=== PATIENT | male | born 1945 | race Caucasian/White ===

== ENCOUNTER 2017-07-30 14:17 | Observation (INO) | payer MEDICARE, BC ==
[~2017-07-30] VITALS: Ht 188 cm; Wt 116.6 kg
[~2017-07-30 14:17] MED LIST: ANAPROX DS550 MG PO; ASPIRIN; ASPIRIN81 M2 PO; BENICAR20 MG PO; BENTYL20 MG PO; CIPRO500 MG PO; CIPROFLOXACIN500 M1 PO; DARVOCET-N 1001 EACH PO; FISH OIL 1,001000 M1 PO; FLAX SEED OIL1000 MG PO; FOLIC ACID 40400 MC1 PO; IBUPROFEN 400400 M2 PO; IRON159 MG PO; KEFLEX500 MG PO; LOPRESSOR 12.12.5 MG PO; LOPRESSOR25 PO; MECLIZINE HCL25 MG PO; METOPROLOL PO; NEXIUM40 MG PO; NORFLEX100 MG PO; NORVASC2.5 MG PO; NORVASC5 MG PO; PAXIL20 MG PO; PLAVIX 75 MG TA75 MG PO; TOPROL XL25 MG PO; TRAMADOL 50 MG50 MG PO; VITAMIN B-12250 MCG PO; ZOCOR 10 MG TAB10 MG PO; ZOCOR 20 MG TAB20 M1 PO
[2017-07-30 14:25] VITALS: BP 138/84
[2017-07-30 14:35] LABS: ABSOLUTE BASOPHILS 0.1 thou/uL (0.0-0.2); ABSOLUTE EOSINOPHILS 0.1 thou/uL (0.0-0.7); ABSOLUTE LYMPHOCYTES 1.8 thou/uL (0.8-5.3); ABSOLUTE MONOCYTES 0.6 thou/uL (0.0-1.2); BASOPHILS 1.1 %; EOSINOPHILS 1.7 %; HEMOGLOBIN 15.6 gm/dL (14.0-18.0); LYMPHOCYTES 23.4 %; MCH 30.4 pg (26.0-34.0); MCHC 33.2 g/dL (28.0-37.0); MCV 91.3 fL (80.0-100.0); MONOCYTES 7.6 %; MPV 9.5 fl. (7.2-11.1); NUCLEATED RBCS 0 /100WBC; PLATELET COUNT* 177 thou/uL (150-400); POLYS 66.2 %; RBC 5.14 mil/uL (4.50-6.00); RDW-CV 14.2 % (10.5-14.5); WBC 7.6 thou/uL (4.0-11.0)
[2017-07-30 14:43] LABS: ANION GAP 4 mmol/L (7-16); BUN 21 mg/dL (7-18); CALCIUM 8.8 mg/dL (8.5-10.1); CHLORIDE 104 mmol/L (98-107); CO2 31 mmol/L (21-32); CREATININE 1.4 mg/dL (0.6-1.3); GLUCOSE 136 mg/dL (70-99); POTASSIUM 4.3 mmol/L (3.5-5.1); SODIUM 139 mmol/L (136-145)
[2017-07-30 14:59] LABS: ALBUMIN 3.9 g/dL (3.4-5.0); ALKALINE PHOSPHATASE 94 U/L (46-116); LIPASE 205 U/L (73-393); MAGNESIUM 1.7 mg/dL (1.8-2.4); NT-PRO BRAIN NAT PEPTIDE 382 pg/mL (<300); SGOT 25 U/L (15-37); SGPT 20 U/L (30-65); TOTAL BILIRUBIN 0.5 mg/dL (<0.1-1.0); TOTAL PROTEIN 7.4 g/dL (6.4-8.2); TROPONIN-I LEVEL <0.06 ng/mL (<0.06)
[2017-07-30 18:30] VITALS: BP 147/63
[2017-07-30] MEDS ORDERED: LIPITOR 10 MG10 M1 PO (20:56)
[2017-07-31] VITALS: BP 123/43
[2017-07-31 04:00] VITALS: BP 136/67
[2017-07-31 08:15] VITALS: BP 125/60
[2017-07-31 12:00] VITALS: BP 143/78
[2017-07-31 12:29] VITALS: BP 125/60
--- NOTE | 2017-07-31 15:50 | EKG ---
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1945 Requested By: Moisés Nava Order Number: [id number] MD: Surinder Colunga Measurements Intervals [place] Rate: 127 P: [place]: QRS: -59 QRSD: 123 T: 91 QT: 346 QTc: 504 Interpretive Statements SUPRAVENTRICULAR TACHYCARDIA with aberrancy IVCD, consider atypical RBBB LVH with IVCD and secondary repol abnrmality Prolonged QT interval Compared to ECG 03/26/2016 04:27:55 SUPRAVENTRICULAR TACHYCARDIA now present Left ventricular hypertrophy now present Early repolarization now present Prolonged QT interval now present Sinus rhythm no longer present Electronically Signed On 07-31-2017 15:50:03 DIGITAL ACCOUNT COORDINATOR by Surinder Colunga [email or web address] <ELECTRONICALLY SIGNED> By: Surinder Colunga MD, [facility] 07/31/17 1550 1422 1422 Surinder Colunga MD, [facility] /EPI
--- NOTE | 2017-07-31 15:50 | EKG ---
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1945 Requested By: Jud Cortez Order Number: [id number] MD: Surinder Colunga Measurements Intervals [place] Rate: 70 P: 25 [place]: 172 QRS: -56 QRSD: 120 T: 29 QT: 437 QTc: 472 Interpretive Statements Sinus rhythm Left anterior fascicular block Left ventricular hypertrophy Compared to ECG 03/26/2016 04:27:55 Left anterior fascicular block now present Left ventricular hypertrophy now present Intraventricular conduction delay no longer present T-wave abnormality no longer present Sinus rhythm now present Electronically Signed On 07-31-2017 15:50:41 CLINICAL PHARMACIST by Surinder Colunga [email or web address] <ELECTRONICALLY SIGNED> By: Surinder Colunga MD, [facility] 07/31/17 1550 1435 1435 Surinder Colunga MD, FAC /EPI
--- NOTE | 2017-07-31 16:09 | 2DMMODE ---
[place] [address] 2 D/M-MODE ECHOCARDIOGRAM Name: EDNA PENG Room: [address] IN [facility]#: [id number] Admission: 07/30/17 Attend Phys: Lizzette Carpenter, Discharge: Date of : 41 Date of Service: 07/31/17 1608 Report #: [id number] THIS REPORT FOR: //name// APPROVED REPORT Study performed: 07/31/2017 13:59:27 EXAM: Comprehensive 2D, Doppler, and color-flow Echocardiogram Patient Location: In-Patient Room #: [facility] BSA: 2.40 HR: 58 bpm BP: 125/60 mmHg Other Information Study Quality: Good Indications Angina 2D Dimensions LVEF(%): 56.39 (>50%) IVSd: 14.33 (7-11mm) LVOT Diam: 21.03 (18-24mm) LVDd: 46.74 mm PWd: 13.32 (7-11mm) Ascending Ao: 35.44 (22-36mm) LVDs: 32.98 (25-40mm) Aortic Root: 31.67 mm Muir's LVEF: 56.39 % Volumes Left Atrial Volume (Systole) LA ESV Index: 21.50 mL/m2 Aortic Valve AoV Peak Hossein.: 1.01 m/s AO Peak Gr.: 4.12 mmHg LVOT Max P.57 mmHg AO Mean Gr.: 2.39 mmHg LVOT Mean P.21 mmHg LVOT Max V: 0.80 m/s AO V2 VTI: 23.22 cm LVOT Mean V: 0.50 m/s EBEN (VTI): 2.86 cm2 LVOT V1 VTI: 19.09 cm Mitral Valve E/A Ratio: 1.05 MV Decel. Time: 227.91 [place] [address] 2 D/M-MODE ECHOCARDIOGRAM Name: EDNA PENG Room: [address] IN ..#: [id number] Admission: 07/30/17 Attend Phys: Lizzette Carpenter, Discharge: Date of : 41 Date of Service: 07/31/17 1608 Report #: [id number] MV E Max Hossein.: 0.74 m/s MV PHT: 66.09 ms MVA (PHT): 3.33 cm2 TDI E/Lateral E': 7.40 E/Medial E': 9.25 Medial E' Hossein.: 0.08 m/s Lateral E' Hossein.: 0.10 m/s Pulmonary Valve PV Peak Hossein.: 0.90 m/s PV Peak Gr.: 3.23 mmHg Tricuspid Valve TR Peak Gr.: 18.37 mmHg RVSP: 23.37 mmHg Left Ventricle The left ventricle is normal size. There is normal LV segmental wall motion. Mild concentric left ventricular hypertrophy. Left ventricular systolic function is normal. The left ventricular ejection fraction is within the normal range. LVEF is 55-60%. The left ventricular diastolic function is normal. Right Ventricle The right ventricle is normal size. The right ventricular systolic function is normal. Atria The left atrium size is normal. The right atrium size is normal. Aortic Valve Mild aortic valve sclerosis. No aortic regurgitation is present. There is no aortic valvular stenosis. Mitral Valve The mitral valve is normal in structure. Trace mitral regurgitation. No evidence of mitral valve stenosis. Tricuspid Valve The tricuspid valve is normal in structure. Mild tricuspid regurgitation. The RVSP is __23.4 mmHg. Pulmonic Valve The pulmonary valve is normal in structure. There is no [place]mon[place] [address] 2 D/M-MODE ECHOCARDIOGRAM Name: GINETTEEDNA Roland Room: [address] IN [facility]#: [id number] Admission: 07/30/17 Attend Phys: Lizzette Carpenter, Discharge: Date of : 41 Date of Service: 07/31/17 1608 Report #: [id number] Great Vessels The aortic root is normal in size. IVC is normal in size and collapses with >50% inspiration Pericardium There is no pericardial effusion. <Conclusion> The left ventricle is normal size. Mild concentric left ventricular hypertrophy. Left ventricular systolic function is normal. The left ventricular ejection fraction is within the normal range. LVEF is 55-60%. The left ventricular diastolic function is normal. The right ventricle is normal size. The left atrium size is normal. Mild aortic valve sclerosis. No aortic regurgitation is present. There is no aortic valvular stenosis. The mitral valve is normal in structure. Trace mitral regurgitation. The tricuspid valve is normal in structure. Mild tricuspid regurgitation. The RVSP is __23.4 mmHg. IVC is normal in size and collapses with >50% inspiration There is no pericardial effusion. There is normal LV segmental wall motion. <ELECTRONICALLY SIGNED> By: Surinder Colunga MD, FACC 07/31/17 1608 1608 1608 Surinder Colunga MD, FACC /INF
[2017-07-31 16:37] VITALS: BP 141/64
[2018-02-21] MEDS ORDERED: CARDIZEM CD 18180 M3 PO (07:17)
[2018-02-21] MEDS ORDERED: DIGOXIN125 MCG PO (07:17)
[2018-02-21] MEDS ORDERED: VITAMIN D3400 UNIT PO (07:18)
[2018-02-21] MEDS ORDERED: OMEGA-31000 M1 PO (07:20)
== END 2017-07-31 16:40 | disposition home or self-care (01) ==
LOC: M.ERS 14:17 → M.2W 15:09 → M.TBA-ER 15:09 → M.2W 15:09
PROVIDERS: Emergency Medicine Emergency Medical Services; ADMIT Internal Medicine
DX: I25.119 Atherosclerotic heart disease of native coronary artery with unspecified angina pectoris (principal); I47.1 Supraventricular tachycardia; E78.5 Hyperlipidemia, unspecified; I10 Essential (primary) hypertension; Z87.891 Personal history of nicotine dependence; Z98.890 Other specified postprocedural states

== ENCOUNTER → 2018-07-17 | Outpatient (CLI) | payer MEDICARE, BC ==
[~2018-07-17] MED LIST changes: +CARDIZEM CD 18180 M3 PO; +DIGOXIN125 MCG PO; +LIPITOR 10 MG10 M1 PO; +OMEGA-31000 M1 PO; +VITAMIN D3400 UNIT PO
--- NOTE | 2018-07-17 14:40 | 2DMMODE ---
[place] [address] 2 D/M-MODE ECHOCARDIOGRAM Name: EDNA PENG Room: [facility]#: [id number] Admission: 07/17/18 Attend Phys: Young Sinclair, Discharge: Date of : 41 Date of Service: 07/17/18 1439 Report #: [id number] THIS REPORT FOR: //name// APPROVED REPORT Study performed: 07/17/2018 13:09:24 EXAM: Comprehensive 2D, Doppler, and color-flow Echocardiogram Patient Location: Out-Patient Status: routine BSA: 2.40 HR: 60 bpm BP: 125/60 mmHg Other Information Study Quality: Good Indications Chest Pain 2D Dimensions IVSd: 13.70 (7-11mm) LVOT Diam: 20.07 (18-24mm) LVDd: 48.60 mm PWd: 13.88 (7-11mm) Ascending Ao: 34.44 (22-36mm) LVDs: 30.52 (25-40mm) Aortic Root: 37.11 mm Volumes Left Atrial Volume (Systole) LA ESV Index: 16.30 mL/m2 Aortic Valve AoV Peak Hossein.: 1.08 m/s AO Peak Gr.: 4.63 mmHg LVOT Max P.71 mmHg AO Mean Gr.: 2.36 mmHg LVOT Mean P.18 mmHg LVOT Max V: 0.82 m/s AO V2 VTI: 23.67 cm LVOT Mean V: 0.49 m/s EBEN (VTI): 2.62 cm2 LVOT V1 VTI: 19.58 cm Mitral Valve E/A Ratio: 0.96 MV Decel. Time: 308.72 ms MV E Max Hossein.: 0.63 m/s MV PHT: 89.53 ms MVA (PHT): 2.46 [place]2 [place] [address] 2 D/M-MODE ECHOCARDIOGRAM Name: EDNA PENG Room: [facility]#: [id number] Admission: 07/17/18 Attend Phys: Young Sinclair, Discharge: Date of : 41 Date of Service: 07/17/18 1439 Report #: [id number] TDI E/Lateral E': 5.73 E/Medial E': 9.00 Medial E' Hossein.: 0.07 m/s Lateral E' Hossein.: 0.11 m/s Pulmonary Valve PV Peak Hossein.: 0.90 m/s PV Peak Gr.: 3.21 mmHg Tricuspid Valve RAP Estimate: 5.00 mmHg TR Peak Gr.: 25.03 mmHg RVSP: 30.03 mmHg PA Pressure: 30.03 mmHg Left Ventricle The left ventricle is normal size. There is normal LV segmental wall motion. Mild concentric left ventricular hypertrophy. Left ventricular systolic function is normal. LVEF is 55-60%. Grade I - abnormal relaxation pattern. Right Ventricle The right ventricle is normal size. The right ventricular systolic function is normal. Atria The left atrium size is normal. The right atrium size is normal. Aortic Valve The aortic valve is normal in structure. No aortic regurgitation is present. There is no aortic valvular stenosis. Mitral Valve The mitral valve is normal in structure. There is no mitral valve regurgitation noted. No evidence of mitral valve stenosis. Tricuspid Valve The tricuspid valve is normal in structure. Mild tricuspid regurgitation. No pulmonary hypertension. Pulmonic Valve The pulmonary valve is normal in structure. There is no [place]mon[place] [address] 2 D/M-MODE ECHOCARDIOGRAM Name: GINETTEEDNASAPNA RUSSELL Room: [facility] SHERIF Bean#: [id number] Admission: 07/17/18 Attend Phys: Young Sinclair, Discharge: Date of : 41 Date of Service: 07/17/18 1439 Report #: [id number] Great Vessels The aortic root is normal in size. IVC is normal in size and collapses >50% with inspiration. Pericardium There is no pericardial effusion. <Conclusion> The left ventricle is normal size. Mild concentric left ventricular hypertrophy. Left ventricular systolic function is normal. LVEF is 55-60%. Grade I - abnormal relaxation pattern. Mild tricuspid regurgitation. No pulmonary hypertension. IVC is normal in size and collapses >50% with inspiration. <ELECTRONICALLY SIGNED> By: Young Sinclair MD, FACC 07/17/18 1439 38 143 Young Sinclair MD, FACC /INF
== END ==
LOC: M.CRD 07-11 08:18
DX: I65.23 Occlusion and stenosis of bilateral carotid arteries (principal); H53.8 Other visual disturbances

== ENCOUNTER → 2018-07-31 | Outpatient (CLI) | payer MEDICARE, BC ==
[2018-07-31 09:02] LABS: CHOLESTEROL 124 mg/dL (<200); HDL CHOLESTEROL 40 mg/dL (>40); LDL CHOLESTEROL 70 mg/dL (<100); TC:HDL 3.1 Ratio (Not establshd); TRIGLYCERIDE 74 mg/dL (<150); VLDL 15 mg/dL (<40)
[2018-07-31 09:03] LABS: SERUM ASSESSMENT Clear
== END ==
LOC: M.LAB 08:01
PROVIDERS: Internal Medicine Cardiovascular Disease
DX: E78.2 Mixed hyperlipidemia (principal)

== ENCOUNTER → 2019-03-08 | Outpatient (CLI) | payer MEDICARE, BC | LOC: M.RAD 15:02 | DX: J92.9 Pleural plaque without asbestos (principal); M47.814 Spondylosis without myelopathy or radiculopathy, thoracic region ==

== ENCOUNTER → 2019-03-26 | Outpatient (CLI) | payer MEDICARE, BC ==
[~2019-03-26] MED LIST changes: +TOPROL XL50 MG PO
[2019-03-26 14:54] LABS: ABSOLUTE BASOPHILS 0.1 thou/uL (0.0-0.2); ABSOLUTE EOSINOPHILS 0.1 thou/uL (0.0-0.7); ABSOLUTE LYMPHOCYTES 1.5 thou/uL (0.8-5.3); ABSOLUTE MONOCYTES 0.7 thou/uL (0.0-1.2); ABSOLUTE NEUTROPHILS 4.9 thou/uL (1.6-8.1); BASOPHILS 0.9 %; EOSINOPHILS 1.4 %; HEMATOCRIT 46.2 % (42.0-52.0); HEMOGLOBIN 15.3 gm/dL (14.0-18.0); LYMPHOCYTES 20.5 %; MCH 30.6 pg (26.0-34.0); MCHC 33.1 g/dL (28.0-37.0); MCV 92.2 fL (80.0-100.0); MONOCYTES 9.4 %; MPV 9.2 fl. (7.2-11.1); NUCLEATED RBCS 0 /100WBC; PLATELET COUNT* 177 thou/uL (150-400); POLYS 67.8 %; RBC 5.01 mil/uL (4.50-6.00); RDW-CV 13.9 % (10.5-14.5); WBC 7.3 thou/uL (4.0-11.0)
[2019-03-26 15:08] LABS: ALBUMIN 4.1 g/dL (3.4-5.0); CALCIUM 9.4 mg/dL (8.5-10.1); CREATININE 1.3 mg/dL (0.6-1.3); POTASSIUM 4.6 mmol/L (3.5-5.1); TOTAL BILIRUBIN 0.6 mg/dL (<0.1-1.0); TOTAL PROTEIN 7.2 g/dL (6.4-8.2)
== END ==
LOC: M.CT 14:35
PROVIDERS: Internal Medicine
DX: K57.30 Diverticulosis of large intestine without perforation or abscess without bleeding (principal); N40.0 Benign prostatic hyperplasia without lower urinary tract symptoms; M51.36 Other intervertebral disc degeneration, lumbar region

== ENCOUNTER → 2019-05-09 | Outpatient (CLI) | payer MEDICARE, BC ==
[~2019-05-09] MED LIST changes: +NORCO 5-325 TA1 EAC1 PO; +TRANSDERM-SCOP1 EACH TRANSDERM
--- NOTE | ~2019-05-09 | OP ---
[address] [address] OPERATIVE REPORT Name: EDNA PENG Room: [facility]#: [id number] Admission: 05/09/19 Attend Phys: Tono Mcknight DO Discharge: Date of : 41 Report #: [id number] THIS REPORT FOR: //name// CC: Jose Cruz Mcknight DATE OF SERVICE: 05/09/2019 PREOPERATIVE DIAGNOSIS: Symptomatic cholelithiasis. POSTOPERATIVE DIAGNOSIS: Symptomatic cholelithiasis. OPERATION: Laparoscopic cholecystectomy. SURGEON: Koffi Pollard MD ANESTHESIA: General. ESTIMATED BLOOD LOSS: Minimal. SPECIMEN: Gallbladder. DESCRIPTION OF PROCEDURE: After informed consent was obtained, the patient was brought to the operating room and placed supine. SCDs were placed and working, preoperative antibiotics were administered, general anesthesia was induced. The abdomen was prepped and draped in the usual sterile fashion. A 10 mm incision was made below the umbilicus. Fascia was incised and a trocar was placed. Pneumoperitoneum was established. Three right upper quadrant 5 mm ports were placed. Gallbladder was grasped at the fundus and retracted cephalad. Infundibulum was grasped and retracted laterally. I dissected out the cystic duct and cystic artery. Cystic duct and artery were clipped and ligated after the cystic plate was fully identified. Cystic duct and artery were clipped and ligated leaving 2 clips on the remaining duct and one on the remaining artery. Gallbladder was then taken off the liver bed with electrocautery. It was placed into an Endopouch and removed. The fascia was then closed with a [id number] 0 Vicryl. Skin was closed with 4-0 Monocryl. Incisions were sealed with Dermabond. COMPLICATIONS: None. DISPOSITION: The patient was taken to recovery in satisfactory condition. By: 1201 1214Koffi Pollard MD /nt
== END ==
LOC: M.MRI 06:58
DX: S83.241A Other tear of medial meniscus, current injury, right knee, initial encounter (principal); S83.281A Other tear of lateral meniscus, current injury, right knee, initial encounter; M25.461 Effusion, right knee; X58.XXXA Exposure to other specified factors, initial encounter; Y93.89 Activity, other specified; Y92.89 Other specified places as the place of occurrence of the external cause; Y99.8 Other external cause status

== ENCOUNTER → 2019-05-09 | Day surgery (SDC) | payer MEDICARE, BC ==
--- NOTE | 2019-05-09 10:34 | EKG ---
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: : 1945 Requested By: Koffi Pollard Order Number: [id number] Leslee MD: Surinder Colunga Measurements Intervals [place] Rate: 56 P: 8 [place]: 166 QRS: -58 QRSD: 120 T: -3 QT: 450 QTc: 435 Interpretive Statements Sinus rhythm Probable left atrial enlargement Left anterior fascicular block Compared to ECG 07/30/2017 14:35:52 Left ventricular hypertrophy no longer present Electronically Signed On 05-09-2019 10:34:19 SUPERVISOR INDUSTRIAL GARMENT by Surinder Colunga [email or web address] <ELECTRONICALLY SIGNED> By: Surinder Colunga MD, [facility] 05/09/19 1034 1003 Surinder Colunga MD, FACC /EPI
[2019-05-09 10:45] LABS: HEMOGLOBIN 15.6 gm/dL (14.0-18.0); MCH 30.6 pg (26.0-34.0); MCHC 33.8 g/dL (28.0-37.0); MCV 90.6 fL (80.0-100.0); MPV 9.5 fl. (7.2-11.1); RBC 5.08 mil/uL (4.50-6.00); RDW-CV 14.3 % (10.5-14.5); WBC 5.5 thou/uL (4.0-11.0)
[2019-05-09 10:55] LABS: CALCIUM 9.1 mg/dL (8.5-10.1); CREATININE 1.2 mg/dL (0.6-1.3)
[2019-05-09 10:59] LABS: ALBUMIN 3.7 g/dL (3.4-5.0); TOTAL BILIRUBIN 0.5 mg/dL (<0.1-1.0)
--- NOTE | 2019-05-13 14:06 | PATH ---
[place] [address] PATHOLOGY RPT PROCEDURE Name: EDNA MORIN Room: [facility].R.#: [id number] Admission: 05/09/19 Date of : 41 Discharge: Report #: [id number] Path Case #: [id number] LCA Accession Number: [id number] . 01 Material submitted: . gallbladder - GALLBLADDER AND CONTENTS . 01 Clinical history: . Calculus of gallbladder . 02 Diagnosis: Gallbladder and contents: - Chronic cholecystitis. See comment. (CALDERON:mandy; 05/13/2019) S 05/13/2019 1049 Local . 02 Comment: No gallstones are identified in the submitted specimen. (CALDERON:mandy; 05/13/2019) . 02 Electronically signed: . Prasanna Johnson MD, Pathologist NPI- [id number] . 01 Gross description: . The specimen is received in formalin, labeled "Edna Morin, gallbladder and contents". Received is a previously opened gallbladder measuring 5.5 x 2.6 x 1.4 cm in greatest dimensions displaying a pink-munoz serosal surface. Opening the specimen reveals a velvety, bile-stained mucosa with a gallbladder wall thickness of 0.1 cm. Calculi are not present upon filtration of the gallbladder and specimen container, and no masses or lesions are noted grossly. Typewriter Aligner sections, to include the proximal margin, are submitted in cassette A1. (CAA; 05/10/2019) QAC/QAC 05/10/2019 1324 Local . 02 Pathologist provided ICD-10: K81.1 . 02 CPT . 809513 Specimen Comment: A courtesy copy of this report has been sent to [phone], [phone] Specimen Comment: [id number] Specimen Comment: Report sent to / DR GUERRERO Performed at: [address], [place] [id number] [place] [address] PATHOLOGY RPT PROCEDURE Name: EDNA MORIN Room: [facility] [place]#: [id number] Admission: 05/09/19 Date of : 41 Discharge: Report #: [id number] Path Case #: [id number] MD Ethan Chan MD Phone: [phone] Performed at: [address] [place] [address], [place], [place] [id number] MD Prasanna Johnson MD Phone: [phone]
== END | disposition home or self-care (01) ==
LOC: M.SUR 06:24
PROVIDERS: Surgery
DX: K81.1 Chronic cholecystitis (principal); I10 Essential (primary) hypertension; I25.10 Atherosclerotic heart disease of native coronary artery without angina pectoris; Z90.49 Acquired absence of other specified parts of digestive tract; Z95.1 Presence of aortocoronary bypass graft; Z98.890 Other specified postprocedural states; Z87.891 Personal history of nicotine dependence; Z79.899 Other long term (current) drug therapy; Z87.01 Personal history of pneumonia (recurrent); Z98.52 Vasectomy status; Z79.82 Long term (current) use of aspirin

== ENCOUNTER 2019-05-26 13:29 | Emergency (ER) | payer MEDICARE, BC ==
[~2019-05-26] VITALS: Ht 160 cm; Wt 116.6 kg
[~2019-05-26 13:29] MED LIST changes: -TRANSDERM-SCOP1 EACH TRANSDERM
[2019-05-26 14:20] LABS: ABSOLUTE BASOPHILS 0.1 thou/uL (0.0-0.2); ABSOLUTE EOSINOPHILS 0.2 thou/uL (0.0-0.7); ABSOLUTE LYMPHOCYTES 1.2 thou/uL (0.8-5.3); ABSOLUTE MONOCYTES 0.5 thou/uL (0.0-1.2); ABSOLUTE NEUTROPHILS 3.7 thou/uL (1.6-8.1); BASOPHILS 1.1 %; EOSINOPHILS 3.1 %; HEMATOCRIT 47.4 % (42.0-52.0); LYMPHOCYTES 21.2 %; MCH 30.8 pg (26.0-34.0); MCHC 33.8 g/dL (28.0-37.0); MCV 91.2 fL (80.0-100.0); MONOCYTES 9.3 %; MPV 9.5 fl. (7.2-11.1); NUCLEATED RBCS 0 /100WBC; PLATELET COUNT* 175 thou/uL (150-400); POLYS 65.3 %; RDW-CV 14.2 % (10.5-14.5); WBC 5.6 thou/uL (4.0-11.0)
[2019-05-26 14:29] LABS: CALCIUM 8.8 mg/dL (8.5-10.1); CREATININE 1.2 mg/dL (0.6-1.3); POTASSIUM 4.3 mmol/L (3.5-5.1)
[2019-05-26 14:32] LABS: APTT 26.8 Seconds (25.0-31.3); PROTIME 10.3 Seconds (9.20-11.50)
[2019-05-26] MEDS ORDERED: TRANSDERM-SCOP1 EACH TRANSDERM (14:37)
[2019-05-26 14:40] LABS: ALBUMIN 3.5 g/dL (3.4-5.0); TOTAL BILIRUBIN 0.6 mg/dL (<0.1-1.0); TOTAL PROTEIN 6.7 g/dL (6.4-8.2)
[2019-05-26 15:45] VITALS: BP 140/80
--- NOTE | 2019-05-27 10:53 | EKG ---
[place] [address] ELECTROCARDIOGRAM REPORT Name: [facility]DNA PENG 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1945 Requested By: Chinmay Dent Order Number: [id number] MD: Jose Cruz Espana Measurements Intervals [place] Rate: 59 P: 29 [place]: 188 QRS: -59 QRSD: 126 T: 10 QT: 443 QTc: 439 Interpretive Statements Sinus rhythm Nonspecific IVCD with LAD Compared to ECG 05/09/2019 10:03:17 no change Electronically Signed On 05-27-2019 10:53:18 RN TRANSITION by Jose Cruz Espana [email or web address] <ELECTRONICALLY SIGNED> By: Jose Cruz Espana MD, [facility] 05/27/19 1053 1356 1356 Jose Cruz Espana MD, FACC /EPI
== END 2019-05-26 15:51 | disposition home or self-care (01) ==
LOC: M.ERS 13:29
PROVIDERS: Family Medicine
DX: R42 Dizziness and giddiness (principal); I10 Essential (primary) hypertension; Z90.49 Acquired absence of other specified parts of digestive tract; Z95.5 Presence of coronary angioplasty implant and graft; Z98.52 Vasectomy status

== ENCOUNTER → 2019-05-29 | Outpatient (CLI) | payer MEDICARE, BC ==
[~2019-05-29] MED LIST changes: +TRANSDERM-SCOP1 EACH TRANSDERM
== END ==
LOC: M.MRI 07:30
DX: R90.82 White matter disease, unspecified (principal); I69.80 Unspecified sequelae of other cerebrovascular disease

== ENCOUNTER → 2019-11-12 | Outpatient (CLI) | payer MEDICARE, BC | LOC: M.RAD 10:20 | DX: I47.1 Supraventricular tachycardia (principal); I10 Essential (primary) hypertension; E78.2 Mixed hyperlipidemia; N64.89 Other specified disorders of breast ==

== ENCOUNTER → 2020-01-23 | Outpatient (CLI) | payer MEDICARE, BC | LOC: M.LAB 08:32 | PROVIDERS: ATTEND Orthopaedic Surgery | DX: Z01.818 Encounter for other preprocedural examination (principal); Z11.59 Encounter for screening for other viral diseases ==

== ENCOUNTER 2020-08-11 14:11 | Emergency (ER) | payer MEDICARE, BC ==
[~2020-08-11] VITALS: Ht 188 cm; Wt 112.5 kg
[2020-08-11 16:50] VITALS: BP 153/81
== END 2020-08-11 16:51 | disposition home or self-care (01) ==
LOC: M.ERS 14:11
DX: S61.211A Laceration without foreign body of left index finger without damage to nail, initial encounter (principal); S61.213A Laceration without foreign body of left middle finger without damage to nail, initial encounter; E78.5 Hyperlipidemia, unspecified; I25.10 Atherosclerotic heart disease of native coronary artery without angina pectoris; I10 Essential (primary) hypertension; Z87.01 Personal history of pneumonia (recurrent); Z90.49 Acquired absence of other specified parts of digestive tract; Z90.89 Acquired absence of other organs; Z95.5 Presence of coronary angioplasty implant and graft; W26.8XXA Contact with other sharp object(s), not elsewhere classified, initial encounter; Y93.89 Activity, other specified; Y92.89 Other specified places as the place of occurrence of the external cause; Y99.8 Other external cause status

== ENCOUNTER 2020-08-19 10:29 | Emergency (ER) | payer MEDICARE, BC ==
[~2020-08-19] VITALS: Ht 188 cm; Wt 113.0 kg
[2020-08-19 10:37] VITALS: BP 157/83
== END 2020-08-19 10:46 | disposition home or self-care (01) ==
LOC: M.ERS 10:29
DX: S61.211D Laceration without foreign body of left index finger without damage to nail, subsequent encounter (principal); S61.213D Laceration without foreign body of left middle finger without damage to nail, subsequent encounter; E78.5 Hyperlipidemia, unspecified; I10 Essential (primary) hypertension; I25.10 Atherosclerotic heart disease of native coronary artery without angina pectoris; Z87.01 Personal history of pneumonia (recurrent); Z90.49 Acquired absence of other specified parts of digestive tract; Z90.89 Acquired absence of other organs; Z95.5 Presence of coronary angioplasty implant and graft; Z95.1 Presence of aortocoronary bypass graft; W26.8XXD Contact with other sharp object(s), not elsewhere classified, subsequent encounter

== ENCOUNTER → 2020-09-18 | Outpatient (CLI) | payer MEDICARE, BC ==
--- NOTE | 2020-10-06 14:44 | SLEEP ---
[address] [address] SLEEP STUDY REPORT Name: EDNA PENG Roland Room: [facility]#: [id number] Admission: 09/18/20 Attend Phys: Manny Mullins MD Discharge: Date of : 41 Report #: [id number] THIS REPORT FOR: cc: Rakesh Landa MD, Dean L. MD Pervez,Manny VELASQUEZ ~ This study has been reviewed in its entirety by a board certified sleep specialist DATE OF SERVICE: 09/18/2020 SLEEP STUDY INDICATION FOR SLEEP STUDY: Excessive daytime sleepiness persisting despite use of a CPAP. The patient has been previously diagnosed with obstructive sleep apnea. INTERPRETATION: Total duration of the study is 450 minutes, out of which he was asleep for 327 minutes with an overall sleep efficiency of 73%. Sleep onset initially occurred 6 minutes after lying down in bed and REM onset was delayed at 353 minutes after sleep onset. N1 sleep duration was 14%, N2 duration was 47%, N3 duration was 13%, and REM duration was 26%. This is a split night sleep study. During the diagnostic portion of the sleep study, the patient was asleep for 139 minutes out of a total of 174 minutes. This entire duration was in non-REM sleep. During the diagnostic portion of the sleep study, we did record multiple sleep related respiratory events. These included 7 central apneas, 4 obstructive apneas, 18 hypopneas and 31 respiratory effort related arousals. Overall, apnea-hypopnea index was 12.5 with respiratory disturbance index elevated to 25.9. Body position data indicates the patient was observed asleep in the supine position for 62 minutes. The rest of the time, the patient was in other positions. Supine apnea-hypopnea index was higher at 24.3. Mean heart rate was 55. Periodic limb movement index is elevated to 106 with a periodic limb movement index with arousals of 20. There are several desaturations recorded as well. O2 saturation, however, is maintained at or above 89% throughout the sleep study. Mean heart rate during the diagnostic portion of the sleep study is 55. The patient was subsequently placed on a CPAP and was observed on CPAP therapy for 276 minutes. This included 84 minutes of REM sleep. Mean heart rate was now 56. Periodic limb movement index remained elevated to 142. Most limb movements, however, were not associated with arousals [place] [address] SLEEP STUDY REPORT Name: EDNA PENG Room: [facility]#: [id number] Admission: 09/18/20 Attend Phys: Manny Mullins MD Discharge: Date of : 41 Report #: [id number] index with arousals being 39.9. Review of the CPAP titration indicates the patient was titrated beginning with a CPAP pressure of 5 cm of water, gradually increasing it to 10 cm of water. With the administration of a CPAP of 10 cm of water, there is adequate control of the patient's sleep apnea and O2 saturation is also adequately maintained. It is, however, noted that while we recorded both sustained REM as well as non-REM sleep on the final CPAP pressure evaluation in the supine position, was limited on lower CPAP pressures when the patient was lying supine, he was awake. IMPRESSION: 1. Obstructive sleep apnea with an apnea-hypopnea index of 12.5 as described above. 2. With the administration of a CPAP of 10 cm of water, there is adequate control of the patient's obstructive sleep apnea in both REM as well as non-REM sleep. Supine sleep is, however, not recorded on the final CPAP pressure. O2 saturation is also adequately maintained with a CPAP of 10 cm of water. RECOMMENDATIONS: I will verify his home CPAP pressure which is last recorded to be 8 cm of water. If it is still at 8, I will go ahead and increase it to 10 cm of water. We will check if his CPAP machine is more than 5 years old. If it is more than 5 years old, then we will order a new CPAP machine with a heated humidity and mask per patient preference while asleep. I recommend avoiding lying supine and lying on sides as much as possible. When correlating with his clinical history, it appears to be more important that the patient should have better compliance with the CPAP. The exact pressures set may be less important. I recommend regularly using the CPAP. There is periodic limb movement disorder, which is significant as above. The patient is on Paxil; however, I did ask him about this on his last office visit and he was not symptomatic from it. Asymptomatic periodic limb movement disorder is not an indication for treatment. This does not appear to be related to his sleep disturbances and therefore if clinically indicated, then Paxil could be continued. Recommend avoiding driving or other activities requiring vigilance if drowsy. Some weight loss may be of benefit. [facility] [address] [place] [address] SLEEP STUDY REPORT Name: EDNA PENG Room: [facility]#: [id number] Admission: 09/18/20 Attend Phys: Manny Mullins MD Discharge: Date of : 41 Report #: [id number] This entire sleep study was reviewed by board certified sleep physician. <ELECTRONICALLY SIGNED> By: Manny Mullins MD 10/06/20 1444 0900 1004Agin Mullins MD /nt
== END ==
LOC: M.SLEEPLAB 20:00
PROVIDERS: ATTEND Internal Medicine Critical Care Medicine
DX: G47.33 Obstructive sleep apnea (adult) (pediatric) (principal)

== ENCOUNTER → 2020-10-02 | Outpatient (CLI) | payer MEDICARE, BC ==
[2020-10-02 08:47] LABS: ALBUMIN 3.6 g/dL (3.4-5.0); ALKALINE PHOSPHATASE 92 U/L (46-116); CHOLESTEROL 119 mg/dL (<200); CK-MB MASS 1.4 ng/mL (<0.5-3.6); DIRECT BILIRUBIN 0.2 mg/dL (<0.1-0.3); HDL CHOLESTEROL 40 mg/dL (>40); LDL CHOLESTEROL 70 mg/dL (<100); SGOT 18 U/L (15-37); SGPT 22 U/L (30-65); TOTAL BILIRUBIN 0.7 mg/dL (<0.1-1.0); TOTAL PROTEIN 7.3 g/dL (6.4-8.2); TRIGLYCERIDE 46 mg/dL (<150); VLDL 9 mg/dL (<40)
[2020-10-02 09:06] LABS: SERUM ASSESSMENT Clear
== END ==
LOC: M.LAB 08:09
PROVIDERS: ATTEND Nurse Practitioner
DX: E78.2 Mixed hyperlipidemia (principal)

== ENCOUNTER → 2020-10-08 | Outpatient (CLI) | payer MEDICARE, BC ==
--- NOTE | 2020-10-22 11:31 | PF ---
[address] [address] PULMONARY FUNCTION REPORT Name: EDNA PENG Room: [facility]#: [id number] Admission: 10/08/20 Attend Phys: Manny Mullins MD Discharge: Date of : 41 Report #: [id number] THIS REPORT FOR: cc: Rakesh Landa MD, Dean L. MD Pervez,Manny VELASQUEZ DOC #: [id number] Manny Mullins MD DATE OF VISIT: 10/08/2020 PULMONARY FUNCTION TEST SPIROMETRY: The FEV1/FVC ratio is decreased to 65% with FVC normal at 81%. The FEV1 is decreased to 73%. The FEF 25-75 was also decreased to 58%. After the administration of a bronchodilator, there is no significant increase in any of these values. The patient's FEV1 is 2.67 liters. This does not increase after the administration of a bronchodilator. The total lung capacity is decreased to 54%. The residual volume is markedly decreased to 10%. The DLCO as adjusted for hemoglobin is decreased to 60%. IMPRESSION: 1. There is severe restriction with a total lung capacity decreased to 54%. 2. Obstruction without reversibility is also present as evidenced by a reduction in FEV1, FVC ratio, likely mild. 3. The DLCO as adjusted for hemoglobin is decreased to 60%. Manny Mullins MD AP/KATHRYN <ELECTRONICALLY SIGNED> By: Manny Mullins MD 10/22/20 1131 0554 2043Agin Mullins MD /nt
== END ==
LOC: M.PUL 14:00
PROVIDERS: ATTEND Internal Medicine Critical Care Medicine
DX: J44.9 Chronic obstructive pulmonary disease, unspecified (principal); Z88.8 Allergy status to other drugs, medicaments and biological substances

== ENCOUNTER → 2020-10-30 | Outpatient (CLI) | payer MEDICARE, BC | LOC: M.CT 11:00 | PROVIDERS: ATTEND Internal Medicine Critical Care Medicine | DX: R94.2 Abnormal results of pulmonary function studies (principal); I70.0 Atherosclerosis of aorta; J98.4 Other disorders of lung ==

== ENCOUNTER 2021-01-03 13:09 | Emergency (ER) | payer MEDICARE, BC ==
[~2021-01-03] VITALS: Ht 190.5 cm; Wt 114.3 kg
[2021-01-03] MEDS ORDERED: TOPROL XL25 MG PO (13:32)
[2021-01-03] MEDS ORDERED: PAROXETINE HCL20 MG PO (13:32)
[2021-01-03] MEDS ORDERED: LIPITOR10 MG PO (13:32)
[2021-01-03] MEDS ORDERED: ASA81BEC PO (13:33)
[2021-01-03] MEDS ORDERED: LANOXIN 0.25M0.25 M1 PO (13:33)
[2021-01-03] MEDS ORDERED: SPIRIVA INH (13:33)
[2021-01-03] MEDS ORDERED: FISH OIL 1,0001 EAC9 PO (13:33)
[2021-01-03] MEDS ORDERED: ADVIL100 M3 PO (13:33)
[2021-01-03] MEDS ORDERED: FLAX SEED OIL1 EACH PO (13:34)
[2021-01-03] MEDS ORDERED: DOXYCYCLINE MO100 MG PO (13:49)
[2021-01-03 14:01] VITALS: BP 174/81
== END 2021-01-03 14:03 | disposition home or self-care (01) ==
LOC: M.ERS 13:09
DX: L03.314 Cellulitis of groin (principal); I25.10 Atherosclerotic heart disease of native coronary artery without angina pectoris; E78.5 Hyperlipidemia, unspecified; I10 Essential (primary) hypertension; Z98.890 Other specified postprocedural states; Z90.49 Acquired absence of other specified parts of digestive tract; Z79.899 Other long term (current) drug therapy

== ENCOUNTER → 2021-01-15 | Outpatient (CLI) | payer MEDICARE, BC ==
[~2021-01-15] MED LIST changes: +ADVIL100 M3 PO; +ASA81BEC PO; +DOXYCYCLINE MO100 MG PO; +FISH OIL 1,0001 EAC9 PO; +FLAX SEED OIL1 EACH PO; +LANOXIN 0.25M0.25 M1 PO; +LIPITOR10 MG PO; +PAROXETINE HCL20 MG PO; +SPIRIVA INH
== END ==
LOC: M.WC 07:51
PROVIDERS: ATTEND Family Medicine
DX: L02.211 Cutaneous abscess of abdominal wall (principal); E78.5 Hyperlipidemia, unspecified; H26.9 Unspecified cataract; I25.10 Atherosclerotic heart disease of native coronary artery without angina pectoris; I10 Essential (primary) hypertension; F41.9 Anxiety disorder, unspecified; F32.9 Major depressive disorder, single episode, unspecified; Z87.891 Personal history of nicotine dependence; Z85.51 Personal history of malignant neoplasm of bladder; Z95.1 Presence of aortocoronary bypass graft; Z95.5 Presence of coronary angioplasty implant and graft; Z90.49 Acquired absence of other specified parts of digestive tract; Z79.82 Long term (current) use of aspirin

== ENCOUNTER → 2021-01-21 | Outpatient (CLI) | payer MEDICARE, BC | LOC: M.WC 08:45 | PROVIDERS: ATTEND Family Medicine | DX: L02.211 Cutaneous abscess of abdominal wall (principal); E78.5 Hyperlipidemia, unspecified; H26.9 Unspecified cataract; I25.10 Atherosclerotic heart disease of native coronary artery without angina pectoris; I10 Essential (primary) hypertension; F41.9 Anxiety disorder, unspecified; F32.9 Major depressive disorder, single episode, unspecified; Z87.891 Personal history of nicotine dependence; Z85.51 Personal history of malignant neoplasm of bladder ==

== ENCOUNTER → 2021-04-16 | Outpatient (CLI) | payer MEDICARE, BC ==
[2021-04-16 09:39] LABS: ANION GAP 4 mmol/L (7-16); BUN 23 mg/dL (7-18); CALCIUM 9.3 mg/dL (8.5-10.1); CHLORIDE 105 mmol/L (98-107); CHOLESTEROL 135 mg/dL (<200); CO2 34 mmol/L (21-32); CREATININE 1.4 mg/dL (0.6-1.3); GLUCOSE 98 mg/dL (70-99); HDL CHOLESTEROL 48 mg/dL (>40); LDL CHOLESTEROL 76 mg/dL (<100); POTASSIUM 4.2 mmol/L (3.5-5.1); SODIUM 143 mmol/L (136-145); TC:HDL 2.8 Ratio (Not establshd); TRIGLYCERIDE 56 mg/dL (<150); VLDL 11 mg/dL (<40)
[2021-04-16 09:44] LABS: SERUM ASSESSMENT Clear
== END ==
LOC: M.LAB 09:00
PROVIDERS: ATTEND Internal Medicine Cardiovascular Disease
DX: I10 Essential (primary) hypertension (principal); E78.2 Mixed hyperlipidemia